=== PATIENT | female | born 1985 | race Caucasian/White ===

== ENCOUNTER → 2019-11-27 | Outpatient (CLI) | payer SELFPAY ==
[2019-11-27 14:38] VITALS: BMI 45.1
[2019-12-02 03:06] LABS: Chlamydia By Nucleic Acid AMP Negative (Negative)
[2019-12-02 06:59] LABS: Gonococcus By Nucleic Acid AMP Negative (Negative)
[2019-12-03 05:36] LABS: HPV APTIMA, High Risk Negative (Negative)
== END | disposition home or self-care (01) ==
LOC: LABSPEC 16:49
PROVIDERS: PCP Family Medicine; Referring Provider Obstetrics & Gynecology; Visit Provider Obstetrics & Gynecology
DX: Z12.4 Encounter for screening for malignant neoplasm of cervix (principal)
CPT/HCPCS: 87491; 87591; 87624; 88175; G0145

== ENCOUNTER → 2020-02-12 12:20 | Outpatient (CLI) | payer SELFPAY ==
[2019-11-27 14:38] VITALS: BMI 45.1
[2019-12-14 13:06] VITALS: BMI 45.1
--- NOTE | 2020-02-12 12:23 | US_ITS ---
STUDY: SECOND AND THIRD TRIMESTER OBSTETRICAL ULTRASOUND REASON FOR EXAM: Female, 34 years old ANATOMY -- SUPERVISION OF HIGH RISK DUE TO AMA, HTN, OBESITY -- BMI 45.4 LMP: 09/19/2019. TECHNIQUE: Transabdominal TECHNICAL QUALITY: Limited. Examination limited due to obesity. PRIOR ULTRASOUND: None. FINDINGS: There is a single intrauterine fetus. The fetus is in a breech presentation. There is demonstrated cardiac activity with a heart rate of 141 bpm. There is a normal amniotic fluid volume. The largest amniotic fluid pocket measures 5 cm x 4.4 cm. The amniotic fluid index (RISSA) is 16.7 cm. The placenta is anterior in location and is not low lying. There are Grade 1 placental changes. The cervix measures 4.2 cm in length. The adnexal regions are not visualized. BIOMETRY: BPD: 4.86 cm: 20 weeks, 5 days HC: 18.48 cm: 20 weeks, 5 days AC: 15.96 cm: 21 weeks, 0 days FL: 3.26 cm: 20 weeks, 1 days CI: 76.4% FL/BPD: 67% FL/HC: FL/AC: 20.4% HC/AC: 1.16 age by current US: 20 weeks, 3 days. ANAY by current US: 06/28/2020. Estimated weight: 371 grams, +/- 56 grams, 36.5 %. Age by LMP: 20 weeks, 6 days. ANAY by LMP: 06/25/2020. ANATOMY: Gender: Female Cranium: Normal lateral ventricles. Normal choroid plexus. Normal cerebellum. Normal cisterna magna. Normal face, nose and lips. Chest: Normal 4-chamber heart. Abdomen/Pelvis: Normal diaphragm. Normal stomach. Normal abdominal wall. Normal cord insertion. The cord vessels are non-visualized. Normal kidneys. Normal bladder. Spine: Limited visualization due to positioning of the fetus. Extremities: Normal bilateral upper extremities. Normal bilateral lower extremities. US/OB Anatomy Scan IMPRESSION: Single live intrauterine gestation with mean gestational age of 20 weeks and 3 days. Limited visualization of the spine as well as the cord insertion. Follow-up is recommended. Electronically Signed: Kodak James, at 15:20 EST , Service support ,
== END ==
PROVIDERS: PCP Family Medicine; Referring Provider Obstetrics & Gynecology; Visit Provider Obstetrics & Gynecology
DX: Z34.90 Encounter for supervision of normal pregnancy, unspecified, unspecified trimester (principal)
CPT/HCPCS: 76805

== ENCOUNTER → 2020-04-08 14:19 | Outpatient (CLI) | payer SELFPAY ==
[2020-02-12 14:32] VITALS: BMI 46.0
[2020-04-08 14:45] LABS: Absolute Lymphocyte Count 1.83 X10^3/uL (0.83-4.51); Absolute Neutrophil Count 8.2 X10^3/uL (2.0-7.7); Basophil# 0.02 X10^3/uL; Basophil% 0.2 % (0-1); Eosinophil# 0.24 X10^3/uL; Eosinophils% 2.2 % (0-5); Hematocrit 34.6 % (37-47); Hemoglobin 11.1 g/dL (12.0-15.0); Lymphocyte # 1.83 X10^3/ul (4.0); Lymphocyte % 16.9 % (19-41); Mean Corp Hgb Conc 32.1 g/dL (32-36); Mean Corpuscular Hgb 27.3 pg (27.0-32.0); Mean Corpuscular Volume 85.2 fL (81-99); Mean Platelet Vol. 8.8 fl (6.2-12.0); Monocyte# 0.51 X10^3/uL; Monocyte% 4.7 % (0-10); NRBC Flagged by Analyzer 0 % (0-5); Neutrophil # 8.19 X10^3/uL (2.7-7.7); Neutrophil % 75.4 % (47-70); Platelet Count 339 K/mm3 (150-450); RBC Distribution Width CV 14.3 % (11.6-14.6); RBC Distribution Width SD 44.4 fl (35.1-43.9); Red Blood Count 4.06 M/mm3 (4.2-5.4); White Blood Count 10.9 K/mm3 (4.4-11.0)
[2020-04-08 15:02] LABS: Glucose Challenge Gest 1H 50g 101 mg/dL (70-140)
== END ==
PROVIDERS: PCP Family Medicine; Referring Provider Obstetrics & Gynecology; Visit Provider Obstetrics & Gynecology
DX: O09.90 Supervision of high risk pregnancy, unspecified, unspecified trimester (principal); Z13.1 Encounter for screening for diabetes mellitus; Z3A.00 Weeks of gestation of pregnancy not specified
CPT/HCPCS: 36415; 82950; 85025

== ENCOUNTER → 2020-04-29 13:36 | Outpatient (CLI) | payer SELFPAY ==
[2020-04-08 16:01] VITALS: BMI 45.4
--- NOTE | 2020-04-29 13:41 | US_ITS ---
STUDY: SECOND AND THIRD TRIMESTER OBSTETRICAL ULTRASOUND REASON FOR EXAM: Female, 34 years old growth LMP: 09/19/2019. TECHNIQUE: Transabdominal TECHNICAL QUALITY: Adequate. PRIOR ULTRASOUND: Comparison is made with prior study dated 02/12/2020. FINDINGS: There is a single intrauterine fetus. The fetus is in a cephalic presentation. There is demonstrated cardiac activity with a heart rate of 137 bpm. There is a normal amniotic fluid volume. The largest amniotic fluid pocket measures 4.4 cm. The amniotic fluid index (RISSA) is 13.2 cm. The placenta is anterior in location and is not low lying. There are Grade 1 placental changes. The cervix measures 3.5 cm in length. The adnexal regions are not visualized. BIOMETRY: BPD: 8.43 cm: 33 weeks, 6 days HC: 30.9 cm: 34 weeks, 3 days AC: 28.1 cm: 32 weeks, 0 days FL: 5.9 cm: 30 weeks, 5 days CI: 78% FL/BPD: 70% FL/HC: FL/AC: 21% HC/AC: 1.1 age by current US: 33 weeks, 0 days. ANAY by current US: 06/17/2020. Estimated weight: 1905 grams, +/- 286 grams, 47 %. age by prior US: 31 weeks, 3 days. ANAY by prior US: 06/28/2020. Age by LMP: 31 weeks, 6 days. ANAY by LMP: 06/25/2020. ANATOMY: Spine: Normal cervical spine. Normal thoracic spine. Normal lumbar spine. Normal sacrum. US/OB Limited With Biometrics IMPRESSION: Single live intrauterine gestation with a mean gestational age of 31 weeks and 3 days. Measurements obtained today fall within the normal expected range. Electronically Signed: Kodak James MD at 14:58 EST , Service support ,
== END ==
PROVIDERS: PCP Family Medicine; Referring Provider Obstetrics & Gynecology; Visit Provider Obstetrics & Gynecology
DX: O09.519 Supervision of elderly primigravida, unspecified trimester (principal); O09.90 Supervision of high risk pregnancy, unspecified, unspecified trimester; O10.919 Unspecified pre-existing hypertension complicating pregnancy, unspecified trimester; Z3A.00 Weeks of gestation of pregnancy not specified
CPT/HCPCS: 76816

== ENCOUNTER → 2020-05-06 13:39 | Outpatient (CLI) | payer SELFPAY ==
[2020-04-08 16:01] VITALS: BMI 45.4
[2020-04-29 14:44] VITALS: BMI 46.2
--- NOTE | 2020-05-06 13:46 | US_ITS ---
STUDY: SECOND AND THIRD TRIMESTER OBSTETRICAL ULTRASOUND - LIMITED REASON FOR EXAM: Female, 34 years old rissa LMP: 09/19/2019. PRIOR ULTRASOUND: Comparison is made with prior examination dated 04/29/2020. TECHNIQUE: Transabdominal TECHNICAL QUALITY: Adequate. FINDINGS: There is a single intrauterine fetus. The fetus is in a transverse lie with the head on the maternal right side. There is demonstrated cardiac activity with a heart rate of 152 bpm. There is a normal amniotic fluid volume. The largest amniotic fluid pocket measures 5.3 cm. The amniotic fluid index (RISSA) is 13.5 cm. The placenta is anterior in location and is not low lying. There are Grade 1 placental changes. The cervix measures 4.1 cm in length. US/OB Limited (No Biometrics) IMPRESSION: Normal amniotic fluid. Electronically Signed: Kodak James MD at 15:29 EST , Service support ,
== END ==
PROVIDERS: PCP Family Medicine; Referring Provider Obstetrics & Gynecology; Visit Provider Obstetrics & Gynecology
DX: O09.90 Supervision of high risk pregnancy, unspecified, unspecified trimester (principal); O09.519 Supervision of elderly primigravida, unspecified trimester; O10.919 Unspecified pre-existing hypertension complicating pregnancy, unspecified trimester; Z3A.00 Weeks of gestation of pregnancy not specified
CPT/HCPCS: 76815

== ENCOUNTER → 2020-05-13 12:17 | Outpatient (CLI) | payer SELFPAY ==
[2020-04-08 16:01] VITALS: BMI 45.4
[2020-05-06 15:01] VITALS: BMI 46.3
--- NOTE | 2020-05-13 12:28 | US_ITS ---
STUDY: SECOND AND THIRD TRIMESTER OBSTETRICAL ULTRASOUND - LIMITED REASON FOR EXAM: Female, 34 years old RISSA LMP: 09/19/2019. PRIOR ULTRASOUND: Comparison is made with prior examination of 05/06/2020. TECHNIQUE: Transabdominal TECHNICAL QUALITY: Adequate. FINDINGS: There is a single intrauterine fetus. The fetus is in a cephalic presentation. There is demonstrated cardiac activity with a heart rate of 152 bpm. There is a normal amniotic fluid volume. The largest amniotic fluid pocket measures 6.6 cm. The amniotic fluid index (RISSA) is 12 cm. The placenta is anterior in location and is not low lying. There are Grade 1 placental changes. The cervix measures 3.1 cm in length. BIOMETRY: Age by LMP: 33 weeks, 6 days. ANAY by LMP: 06/25/2020. US/OB Limited (No Biometrics) IMPRESSION: Normal amniotic fluid index. Electronically Signed: Kodak James MD at 14:36 EST , Service support ,
== END ==
PROVIDERS: PCP Family Medicine; Referring Provider Obstetrics & Gynecology; Visit Provider Obstetrics & Gynecology
DX: O09.90 Supervision of high risk pregnancy, unspecified, unspecified trimester (principal); O09.519 Supervision of elderly primigravida, unspecified trimester; O10.919 Unspecified pre-existing hypertension complicating pregnancy, unspecified trimester; Z3A.00 Weeks of gestation of pregnancy not specified
CPT/HCPCS: 76815

== ENCOUNTER → 2020-05-20 13:04 | Outpatient (CLI) | payer SELFPAY ==
[2020-04-08 16:01] VITALS: BMI 45.4
[2020-05-06 15:01] VITALS: BMI 46.3
--- NOTE | 2020-05-20 13:07 | US_ITS ---
STUDY: SECOND AND THIRD TRIMESTER OBSTETRICAL ULTRASOUND - LIMITED REASON FOR EXAM: Female, 34 years old RISSA at 35 weeks LMP: 09/19/2019. PRIOR ULTRASOUND: Comparison is made with prior examination dated 05/13/2020. TECHNIQUE: Transabdominal TECHNICAL QUALITY: Adequate. FINDINGS: There is a single intrauterine fetus. The fetus is in a cephalic presentation. There is demonstrated cardiac activity with a heart rate of 131 bpm. There is a normal amniotic fluid volume. The largest amniotic fluid pocket measures 8.23 cm. The amniotic fluid index (RISSA) is 12.9 cm. The placenta is anterior in location and is not low lying. There are Grade 1 placental changes. The cervix measures 3.4 cm in length. BIOMETRY: Age by LMP: 34 weeks, 6 days. ANAY by LMP: 07/05/2020. US/OB Limited (No Biometrics) IMPRESSION: Normal amniotic fluid index. Electronically Signed: Kodak James MD at 14:38 EST , Service support ,
== END ==
PROVIDERS: PCP Family Medicine; Referring Provider Obstetrics & Gynecology; Visit Provider Obstetrics & Gynecology
DX: O09.90 Supervision of high risk pregnancy, unspecified, unspecified trimester (principal); O09.519 Supervision of elderly primigravida, unspecified trimester; O10.919 Unspecified pre-existing hypertension complicating pregnancy, unspecified trimester; Z3A.00 Weeks of gestation of pregnancy not specified
CPT/HCPCS: 76815

== ENCOUNTER → 2020-05-27 13:22 | Outpatient (CLI) | payer SELFPAY ==
[2020-04-08 16:01] VITALS: BMI 45.4
[2020-05-20 14:15] VITALS: BMI 47.0
--- NOTE | 2020-05-27 13:32 | US_ITS ---
STUDY: SECOND AND THIRD TRIMESTER OBSTETRICAL ULTRASOUND REASON FOR EXAM: Female, 35 years old growth at 36 weeks LMP: 09/19/2019 TECHNIQUE: Transabdominal TECHNICAL QUALITY: Adequate. PRIOR ULTRASOUND: 05/20/2020 FINDINGS: There is a single intrauterine fetus. The fetus is in a cephalic presentation. There is demonstrated cardiac activity with a heart rate of 141 bpm. There is a normal amniotic fluid volume. The largest amniotic fluid pocket measures 6.7 cm. The amniotic fluid index (RISSA) is 14.9 cm. The placenta is anterior in location and is not low lying. There are Grade 2 placental changes. The cervix measures 3.7 cm in length. The adnexal regions are not visualized. BIOMETRY: BPD: 9.1 cm: 36 weeks, 6 days HC: 33.7 cm: 38 weeks, 4 days AC: 32.1 cm: 36 weeks, 0 days FL: 6.8 cm: 34 weeks, 4 days CI: 81.21% FL/BPD: 74.02% FL/HC: 20.02% FL/AC: 21.04% HC/AC: 1.05 age by current US: 36 weeks, 4 days. ANAY by current US: 06/20/2020. Estimated weight: 2808 grams, +/- 421 grams, 52 %. Age by LMP: 35 weeks, 6 days. ANAY by LMP: 06/25/2020. US/OB Limited With Biometrics IMPRESSION: Living intrauterine of 36 weeks 4 days as described above. Electronically Signed: Bang Jordan MD at 8:20 EST Tel , Service support ,
== END ==
PROVIDERS: PCP Family Medicine; Referring Provider Obstetrics & Gynecology; Visit Provider Obstetrics & Gynecology
DX: O09.519 Supervision of elderly primigravida, unspecified trimester (principal); O09.90 Supervision of high risk pregnancy, unspecified, unspecified trimester; O10.919 Unspecified pre-existing hypertension complicating pregnancy, unspecified trimester; Z3A.00 Weeks of gestation of pregnancy not specified
CPT/HCPCS: 76816; 87077; 87081; 87186

== ENCOUNTER → 2020-06-03 13:15 | Outpatient (CLI) | payer SELFPAY ==
[2020-04-08 16:01] VITALS: BMI 45.4
[2020-05-27 14:33] VITALS: BMI 47.2
--- NOTE | 2020-06-03 13:42 | US_ITS ---
INDICATION: RISSA at 37 weeks EXAMINATION: US OB Limited 1 Or More Fetus TECHNIQUE: Transabdominal pelvic ultrasound was performed. COMPARISON: 05/27/2020. FINDINGS: INTRAUTERINE GESTATION(s): Single. ESTIMATED GESTATIONAL AGE: 37 weeks 4 days ESTIMATED DUE DATE (ANAY): 06/20/2020 HEART MOTION is 157 bpm. AMNIOTIC FLUID INDEX (RISSA): 9.3 PRESENTATION: Cephalic CERVIX: The cervix is not visualized. US/OB Limited (No Biometrics) IMPRESSION: Normal RISSA. Electronically Signed: Mal Mosher MD at 18:42 EST Tel , Service support ,
== END ==
PROVIDERS: PCP Family Medicine; Referring Provider Obstetrics & Gynecology; Visit Provider Obstetrics & Gynecology
DX: O09.90 Supervision of high risk pregnancy, unspecified, unspecified trimester (principal); O09.519 Supervision of elderly primigravida, unspecified trimester; O10.919 Unspecified pre-existing hypertension complicating pregnancy, unspecified trimester; Z3A.00 Weeks of gestation of pregnancy not specified
CPT/HCPCS: 76815

== ENCOUNTER → 2020-06-10 13:06 | Outpatient (CLI) | payer SELFPAY ==
[2020-04-08 16:01] VITALS: BMI 45.4
[2020-06-03 14:55] VITALS: BMI 46.5
--- NOTE | 2020-06-10 13:33 | US_ITS ---
STUDY: OBSTETRICAL ULTRASOUND - BIOPHYSICAL PROFILE REASON FOR EXAM: Female, 35 years old RISSA at 38 weeks . well-being. LMP: 09/19/2019. PRIOR ULTRASOUND: Comparison is made with prior study dated 06/03/2020. TECHNIQUE: Transabdominal TECHNICAL QUALITY: Adequate. FINDINGS: There is a single intrauterine fetus. The fetus is in a cephalic presentation. There is demonstrated cardiac activity with a heart rate of 140 bpm. There is a normal amniotic fluid volume. The largest amniotic fluid pocket measures 7.7 cm. The amniotic fluid index (RISSA) is 15.9 cm. The placenta is anterior in location and is not low lying. There are Grade 2 placental changes. Age by LMP: 37 weeks, 6 days. ANAY by LMP: 06/25/2020. age by prior US: 37 weeks, 6 days. ANAY by prior US: 06/25/2020. BIOPHYSICAL PROFILE: Breathing Movements (FBM): 2 Gross Body Movements (GBM): 2 Tone (FT): 2 Amniotic Fluid Volume (AFV): 2 TOTAL SCORE: 8 / 8 US/Biophysical Prof W/O Non Stres IMPRESSION: Normal biophysical profile of 8/8. Electronically Signed: Kodak James MD at 14:33 EDT , Service support ,
== END ==
PROVIDERS: PCP Family Medicine; Referring Provider Obstetrics & Gynecology; Visit Provider Obstetrics & Gynecology
DX: O09.519 Supervision of elderly primigravida, unspecified trimester (principal); O09.90 Supervision of high risk pregnancy, unspecified, unspecified trimester; O10.919 Unspecified pre-existing hypertension complicating pregnancy, unspecified trimester; Z3A.00 Weeks of gestation of pregnancy not specified
CPT/HCPCS: 76819

== ENCOUNTER 2020-06-17 14:10 | Inpatient (IN) | payer SELFPAY ==
[2019-11-27 14:38] VITALS: BMI 45.1
[2020-06-10 14:28] VITALS: BMI 47.4
[2020-06-17] VITALS (9 sets, daily range): BP systolic 130–182; BP diastolic 84–97; PULSE 71–93; TEMP 36.6–37.3; O2SAT 98; BMI 47.3
[2020-06-17 15:18] LABS: Absolute Lymphocyte Count 1.64 X10^3/uL (0.83-4.51); Absolute Neutrophil Count 7.8 X10^3/uL (2.0-7.7); Basophil# 0.05 X10^3/uL; Basophil% 0.5 % (0-1); Eosinophil# 0.19 X10^3/uL; Eosinophils% 1.9 % (0-5); Hematocrit 37.2 % (37-47); Hemoglobin 12.2 g/dL (12.0-15.0); Lymphocyte # 1.64 X10^3/ul (4.0); Lymphocyte % 16.1 % (19-41); Mean Corp Hgb Conc 32.8 g/dL (32-36); Mean Corpuscular Volume 85.3 fL (81-99); Mean Platelet Vol. 9.8 fl (6.2-12.0); Monocyte# 0.43 X10^3/uL; Monocyte% 4.2 % (0-10); NRBC Flagged by Analyzer 0 % (0-5); Neutrophil % 76.7 % (47-70); Platelet Count 326 K/mm3 (150-450); RBC Distribution Width CV 15.6 % (11.6-14.6); Red Blood Count 4.36 M/mm3 (4.2-5.4); White Blood Count 10.2 K/mm3 (4.4-11.0)
[2020-06-17] MEDS: 0.9% Saline Lock 10 ML Syringe IV ×2 (15:27→23:10)
[2020-06-17 15:41] LABS: Amphetamine Urine VISTA NEGATIVE (<1000 ng/mL); Barbiturate Urine VISTA NEGATIVE (< 200 ng/mL); Benzodiazepine Urine VISTA NEGATIVE (< 200 ng/mL); Cocaine Urine VISTA NEGATIVE (< 300 ng/mL); Ecstacy Urine VISTA POSITIVE (< 500 ng/mL); Methadone Urine VISTA NEGATIVE (< 300 ng/mL); PCP Urine VISTA NEGATIVE (< 25 ng/mL); THC Urine VISTA NEGATIVE (< 50 ng/mL); Vista UDS pH Range 6
[2020-06-17 15:47] LABS: Rubella IgG Reactive (Nonreactive); Syphilis Antibodies Non-reactive
[2020-06-17 16:07] LABS: HIV - WCH Non-Reactive (Nonreactive); Hepatitis B Surface Antigen Non-Reactive (Nonreactive); Hepatitis C Antibody Non-Reactive (Nonreactive)
[2020-06-17] MEDS: miSOPROStol 25 MCG TABLET PO ×2 (16:40→21:30)
[2020-06-17] MEDS: 0.9% Normal Saline Single 100 ML IV.SOLN. INTRA-UTER (16:41)
--- NOTE | 2020-06-17 17:50 | HP.PCM_ITS ---
- Problem List (1) Encounter for induction of labor Status: Acute (2) 36 weeks gestation of Status: Acute Comment: electronic covid test ordered 05/27/20 (scheduled for 06/17/20 at 1340) (3) AMA (advanced maternal age) primigravida 35+ Status: Acute Comment: declined genetic testing. (4) Anxiety and depression Status: Acute Comment: counseling and acupuncture (5) Chronic hypertension affecting Status: Chronic Comment: base line labs. labetalol 100 BID. recommend weekly nst/alexandr after 32 weeks, delivery bt 38-40 weeks. growth US q 4 weeks (6) Hypothyroid Status: Acute Comment: TSH qtrimester. TSH 5.180 at NOB; TSH 01/17- 5.380 - patient to call PCP to adjust dose. (7) Obesity affecting Status: Acute Comment: glucola 1 hour (8) Positive GBS test Status: Acute Comment: PCN at labor. (9) Status: Acute Qualifiers: Comment: Co Care with Vanessa Snowden declines genetic, carrier and NTD; NL anatomy; needs addition views of spine to finish up anatomy- AFP negative (10) Rh negative state in antepartum period Status: Acute Comment: Patient is O neg; Spouse Jose is A neg (brought blood type card to New OB visit) (11) Supervision of high risk , antepartum Status: Acute Comment: (SP- NOB labs @del) ANAY 06/25/2020 Girl - Syl Spouse: Jose (Sukhdeep, Lamberto, Angelica, Shelly, Domenica) History and Physical Date of Admission: 06/17/20 Intake Vital Signs 06/10/20 Height 5 ft 5 in 06/10/20 Weight: 285 lb 06/10/20 BMI 47.4 06/10/20 BP 122/82 H Intake Visit Reasons: 38 WK OB/NST 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 Required: No Is patient in pain?: No Allergies No Known Allergies Allergy (Verified 06/10/20 14:30) Medications labetalol 100 mg tablet 100 mg PO BID 11/27/19 [History Confirmed 06/10/20] levothyroxine 137 mcg capsule 137 mcg PO DAILY 11/27/19 [History Confirmed 06/10/20] multivitamin no.47-iron fum 27 mg-folate no.1 1 mg-dha 300 mg capsule cap PO 11/27/19 [History Confirmed 06/10/20] famotidine 20 mg tablet 20 mg PO DAILY #30 tab 04/08/20 [Rx Confirmed 06/10/20] Last Menstral Period: 09/19/19 Zika: Zika virus screening: Negative : No PFSH PFSH Medical History Hypothyroid (Acute) Chronic hypertension affecting (Chronic) Obesity (Acute) Surgical History History of tonsillectomy (Acute) Family History Father Diabetes Hypertension Kidney disease Mother Ovarian cancer Grandmother Cancer acute leukemia Grandmother Diabetes Hypertension Social History (Updated 06/11/20 @ 05:[address] Juju Rodriguez MD) adopted: No household members: spouse, family housing: house current occupational status: employed current occupation: 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 OB Visit ANAY Calculator Estimated Delivery Date Method Current WG Current Estimate 06/25/20 LMP (Certain) 38w 0d Other Estimates 06/25/20 Ultrasound #1 38w 0d Expected Delivery Route/Plan IOL by 38-39 due to cHTN Labor Preferences- CB/BF classes: 05/14 labor support person: Jose labor intervention preferences: desires minimal intervention, desires tub in labor, hep lock if possible, declines baby meds, breast milk in eyes, vitamin K only if baby has bruising on head, would like to deliver with squatting bar pain management options preferred: desires natural labor - would like to avoid epidural if at all possible cut cord/dad catch: yes - both : yes PP control planned: NFP discussed possible routes of delivery and associated risks: discussed possible delivery modalities and possible indications for each including R/B/A of , VAVD, FAVD, and CS. questions answered. special requests: [] Specific Issue/Plans flu vaccine: declines tdap vaccine: declines rhogam: refused due to in o neg, confirmed with type card LARC form signed: declined movement and labor precautions reviewed. Problem list reviewed and updated with the most current plan of care details and appropriate orders placed. Relevant counseling for the gestational age provided. 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 CRL consistent with LMP. 12/14/19 12w 2d 273 lb 2 oz (+2 lb 2 oz) 140/90 Negative Negative 170 GP - no cramping or bleeding. TSH high - will forward results to PCP. 02/12/20 20w 6d 276 lb 8 oz (+5 lb 8 oz) 120/82 Negative Negative 150 GP - no LOF, VB, cramping. Not yet feeling consistent movement. Thyroid medication adjusted by PCP after last visit. Co-care with Jens Snowden. Discussed GCT next visit. 04/08/20 28w 6d 273 lb (+2 lb) 118/75 140 29 SM- no vb lof good fm no regular ctx discussed cHTN and cocare management SM- no vb lof good fm no regular ctx discussed cHTN and cocare management, recommend weekly nsts/alexandr and weekly visits here starting at 32 weeks, and plan delivery bt 38-40 weeks if reassuring testing. 04/29/20 31w 6d 278 lb (+7 lb) Negative Negative 150 GP - no LOF, VB, DFM, ctx. Planning to do childbirth classes. NST reactive. GP - no LOF, VB, DFM, ctx. Planning to do childbirth classes. NST reactive. Having heartburn - discussed pepcid 05/06/20 32w 6d 278 lb 6 oz (+7 lb 6 oz) 130/90 Negative Negative 150 GP - no LOF, VB, DFM, ctx. Getting bathroom remodeled for gomez's day. Baby breech on US today - discussed can still flip frequently at this point in . CB classes 05/1405/13/20 33w 6d Negative Negative 150 SM- no vb lof good fm doing better today nl alexandr. CB class tomorrow 05/20/20 34w 6d 282 lb 6 oz (+11 lb 6 oz) 138/88 Negative Negative 140 35 GP - no LOF, VB, DFM, ctx. Discussed labor preferences and routes of delivery. Also making printed plan. 05/27/20 35w 6d 284 lb (+13 lb) 138/92 140 36 SM- no vb lof good fm no regular ctx 06/03/20 36w 6d 280 lb (+9 lb) Negative Negative 140 37 SM- no vb lof good fm no regular ctx 06/10/20 37w 6d 285 lb (+14 lb) 122/82 Negative Negative 140 38 SM-no vb lof good fm no regular ctx, doing acupuncture treatments to help go into labor. discussed IOL bt 38-39 due to cHTN, reassuring testing. ACOG First Trimester First Trimester: Desire for , Alcohol, Tobacco Cessation, Illicit/Recreational Drug/Substance Use, Intimate Partner Violence, Barriers to care, Unstable Housing, Communication Barriers, Anticipated Course of Care, Use of Any medications, Childbirth classes/Hospital facilities, and Screening for Aneuploidy Second Trimester Second Trimester: Signs and Symptoms of Labor, Selecting a care provider, Reproductive Life Planning, Care Planning, Tobacco Cessation, Depression/Anxiety and Intimate Partner Violence Third Trimester Third Trimester: Pain Management Plans, Labor support person(s), Immediate Larc, Movement Monitoring and Infant Feeding Yes ; discussed Trial of Labor after Counseling or discussed Circumcision preference Diagnostics Diagnostics Details: HIV: Urine Culture: Sequential Screen: NIPT Screen: ROS Const Reports system reviewed and no additional complaints, except as docu Card Reports system reviewed and no additional complaints, except as docu Resp Reports system reviewed and no additional complaints, except as docu GI Reports system reviewed and no additional complaints, except as docu, Reports nausea Reports system reviewed and no additional complaints, except as docu Musc Reports system reviewed and no additional complaints, except as docu Exam Const General: cooperative, healthy appearing, comfortable, anxious [facility] Head: normal to inspection Nose: external nose normal Face and sinus: normal facial exam Neck Neck: normal visual inspection, full ROM, no lymphadenopathy Thyroid: thyroid normal Chest Chest palpation & inspection: normal inspection of the chest Resp Effort & Inspection: normal respiratory effort GI Inspection: normal to inspection Palpation: soft, other (gravid uterus) Other: infant vertex and appropriate size for gestational age Other: Cervical Exam: Extrem General: pedal edema Results POC Urinalysis 2 Dip (Clinic) Office Urine Glucose Negative Last Edit by Peggy Yousif on 06/10/20 14:32 Office Urine Protein Negative Last Edit by Peggy Yousif on 06/10/20 14:32 Assessment & Plan Problems 1. Z34.90 Co Care with Vanessa Snowden declines genetic, carrier and NTD; NL anatomy; needs addition views of spine to finish up anatomy- AFP negative 2. Supervision of high risk , antepartum O09.90 (SP- NOB labs @[facility]) ANAY 06/25/2020 Girl - Yunieriper Spouse: Jose (Lamberto Tarango, Shelly Dominguez, Domenica) 3. Obesity affecting O99.210 glucola 1 hour 4. AMA (advanced maternal age) primigravida 35+ O09.519 declined genetic testing. 5. Chronic hypertension affecting O10.919 base line labs. labetalol 100 BID. recommend weekly nst/alexandr after 32 weeks, delivery bt 38-40 weeks. growth US q 4 weeks 6. Anxiety and depression F41.9; F32.9 counseling and acupuncture 7. 36 weeks gestation of Z3A.36 electronic covid test ordered 05/27/20 (scheduled for 06/17/20 at 1340) 8. Positive GBS test B95.1 PCN at labor. 9. Hypothyroid E03.9 TSH qtrimester. TSH 5.180 at NOB; TSH 01/17- 5.380 - patient to call PCP to adjust dose. 10. Rh negative state in antepartum period O26.899; Z67.91 Patient is O neg; Spouse Jose is A neg (brought blood type card to New OB visit) Plan Patient will present on for IOL, plan management for with cytotec. Pain management: prefers minimal intervention. GBS positive- pcn in labor. Management of any complications: cHTN, declined labs in beginning of plan draw at delivery, declined covid testing. I have reviewed the [facility] and made any clinically relevant updates. UPDATE- I have seen the patient and performed any clinically relevant updates to the history and physical exam. Silvia Chavis MD
[2020-06-17] MEDS: Labetalol 100 MG Tablet PO (21:51)
[2020-06-17] MEDS: Mag Hydrox/Al Hydrox/Simeth 30 ML UDC PO (23:04)
[2020-06-17] MEDS: Acetaminophen 500 MG Tablet PO (23:04)
[2020-06-17] MEDS: Lactated Ringers 500 ML 999 ML IV (23:12)
[2020-06-17] MEDS: Lactated Ringers 1,000 ML 50 ML IV (23:43)
[2020-06-18] VITALS (107 sets, daily range): BP systolic 93–184; BP diastolic 52–118; PULSE 61–129; RESP 16–24; TEMP 36.6–37.6; O2SAT 81–100
[2020-06-18] MEDS: Oxytocin 30 units/NS 500 ml 30 UNITS/500 ML IV.SOLN IV (01:30)
[2020-06-18] MEDS: Mag Hydrox/Al Hydrox/Simeth 30 ML UDC PO ×3 (03:06→13:53)
[2020-06-18] MEDS: Labetalol (Prefilled) 20 MG/4 ML IV (04:15)
[2020-06-18] MEDS: Magnesium Sulfate 4gm/100mL 4 GM/100 ML IV.SOLN. IV ×2 (04:19→04:39)
[2020-06-18] MEDS: Labetalol 100 MG Tablet PO ×2 (04:23→22:57)
[2020-06-18 04:42] LABS: ALB/GLOB Ratio 0.6 RATIO (0.9-2.4); AST(SGOT) 15 U/L (15-37); Alanine Aminotransfer ALT/SGPT 20 U/L (13-56); Albumin, Serum 2.6 g/dL (3.2-5.0); Alkaline Phosphatase 129 U/L (45-117); Anion Gap 7 (5-15); BUN 8 mg/dL (7-18); Calcium,Total 9.4 mg/dL (8.5-10.1); Chloride 107 mmol/L (98-107); Creatinine, Serum 0.62 mg/dL (0.55-1.02); EST Glomerular Filtration Rate 116 mL/min (>60); Est Glom Filt Rate - Afr Amer 141 mL/min (>60); Estimated Creatinine Clearance 112.88 ml/min; Globulin 4.2 g/dL (2.2-4.2); Glucose 93 mg/dL (74-106); Protein, Total 6.8 g/dL (6.4-8.2); Sodium Level 139 mmol/L (136-145)
[2020-06-18] MEDS: Magnesium Sulfate 20 GM/500 ML BAG IV ×2 (04:52→15:00)
[2020-06-18] MEDS: Ondansetron 4 MG/2 ML Vial IV ×2 (05:10→15:25)
[2020-06-18] MEDS: Levothyroxine 137 MCG Tablet PO (05:45)
[2020-06-18] MEDS: Acetaminophen 500 MG Tablet PO (08:32)
[2020-06-18] MEDS: Labetalol 200 MG Tablet PO (09:47)
--- NOTE | 2020-06-18 09:58 | PCM.PN.BLA ---
Progress Note Patient 4/60/-2. AROM at this time for a moderate amount of clear fluid. IUPC placed. STROKE Vital Signs/Narrative: Vital Signs Temp Pulse Resp BP Pulse Ox 06/18/20 09:29 98.1 F 73 98 06/18/20 09:28 98.9 F 73 20 H 132/86 H 98 06/18/20 09:20 81 132/86 H 06/18/20 08:19 75 139/93 H 06/18/20 08:18 75 18 139/93 H 97 06/18/20 07:22 98.9 F 81 141/85 H 98 06/18/20 07:18 98.9 F 81 18 141/85 H 98 06/18/20 06:49 68 143/83 H 06/18/20 06:18 98.4 F 77 16 147/88 H 98 06/18/20 06:03 64 147/84 H
[2020-06-18] MEDS: Lactated Ringers 500 ML 999 ML IV ×3 (13:53→16:29)
[2020-06-18] MEDS: fentaNYL-bupivacaine (epidural) 100 ML BAG EPIDURAL (14:36)
[2020-06-18] MEDS: Acetaminophen 500 MG Tablet 1000 MG PO (16:49)
[2020-06-18] MEDS: Sodium Citrate/Citric Acid 30 ML UDC PO (16:50)
[2020-06-18] MEDS: Carboprost Tromethamine 250 MCG/ML Ampul IM (17:34)
[2020-06-18] MEDS: Oxytocin 30 units/NS 500 ml 30 UNITS/500 ML IV.SOLN 167 UNITS IV (18:30)
--- NOTE | 2020-06-18 18:34 | PCM.PN.BLA ---
Progress Note Late note due to patient care: Notified by RN at 1600 the patient had another prolonged deceleration and continued to have minimal variability. I came to the bedside to evaluate at 1633 and attempted to obtain scalp stim. Able to obtain scalp system for obtained acceleration with vibroacoustic stimulation. Counseled patient that given minimal variability with multiple prolonged decelerations and intermittent late decelerations, I recommended proceeding with a primary due to category 2 heart rate tracing remote from delivery and failure to augment. The risk, benefits, indications, and alternatives to the procedure were discussed with patient including bleeding, infection, and visceral or vascular injury. Patient voiced understanding and agreed to proceed. STROKE Vital Signs/Narrative: Vital Signs Temp Pulse Resp BP Pulse Ox 06/18/20 16:43 129 H 160/118 H 06/18/20 16:27 76 93/55 L 06/18/20 16:22 81 93/52 L 06/18/20 16:18 81 103/72 06/18/20 16:12 76 101/61 06/18/20 16:08 78 108/52 L 06/18/20 16:02 76 114/71 06/18/20 15:58 82 121/77 H 06/18/20 15:54 61 92 06/18/20 15:53 74 100/59 L 06/18/20 15:49 73 119/71 06/18/20 15:48 99 06/18/20 15:43 72 100 06/18/20 15:42 124/85 H 06/18/20 15:38 69 100 06/18/20 15:37 72 119/76 06/18/20 15:33 75 100 06/18/20 15:28 72 100 06/18/20 15:27 70 113/69 06/18/20 15:23 71 100 06/18/20 15:22 68 107/65 06/18/20 15:18 98.7 F 74 22 H 114/69 100 06/18/20 15:13 74 100 06/18/20 15:12 73 115/69 06/18/20 15:09 76 88 06/18/20 15:08 74 100 06/18/20 15:07 80 104/62 06/18/20 15:03 82 96/57 L 06/18/20 14:58 82 95/55 L 06/18/20 14:51 88 132/62 H 06/18/20 14:49 81 149/78 H 99 06/18/20 14:44 75 96 06/18/20 14:43 74 100/67 06/18/20 14:39 73 96 06/18/20 14:37 72 107/62
--- NOTE | 2020-06-18 18:36 | OP.PCM_ITS ---
Problem List (1) Encounter for induction of labor Status: Acute (2) 36 weeks gestation of Status: Acute Comment: electronic covid test ordered 05/27/20 (scheduled for 06/17/20 at 1340) (3) AMA (advanced maternal age) primigravida 35+ Status: Acute Comment: declined genetic testing. (4) Anxiety and depression Status: Acute Comment: counseling and acupuncture (5) Chronic hypertension affecting Status: Chronic Comment: base line labs. labetalol 100 BID. recommend weekly nst/alexandr after 32 weeks, delivery bt 38-40 weeks. growth US q 4 weeks (6) Hypothyroid Status: Acute Comment: TSH qtrimester. TSH 5.180 at NOB; TSH 01/17- 5.380 - patient to call PCP to adjust dose. (7) Obesity affecting Status: Acute Comment: glucola 1 hour (8) Positive GBS test Status: Acute Comment: PCN at labor. (9) Status: Acute Qualifiers: Comment: Co Care with Vanessa Snowden declines genetic, carrier and NTD; NL anatomy; needs addition views of spine to finish up anatomy- AFP negative (10) Rh negative state in antepartum period Status: Acute Comment: Patient is O neg; Spouse Jose is A neg (brought blood type card to New OB visit) (11) Supervision of high risk , antepartum Status: Acute Comment: (SP- NOB labs @del) ANAY 06/25/2020 Girl - Syl Spouse: Jose (Sukhdeep, Lamberto, Angelica, Shelly, Domenica) Delivery Classification: JESSICA Final ANAY: 06/25/20 Gestational age: 39 Weeks and 0 Days tube trailer filler: Ria Guerrero Type of Anesthesia:: Epidural Date of Procedure: 06/18/20 Pre-Operative Diagnosis: Term , induction of labor for chronic hypertension with superimposed preeclampsia with severe features, category 2 heart rate tracing remote from delivery Post-Operative Diagnosis: Same Indications: Patient is a 35-year-old G1, P0 at 39 weeks gestation who was admitted for induction of labor for chronic hypertension. While in labor, she had persistent severe range blood pressures requiring acute treatment with IV labetalol and was therefore started on magnesium sulfate for chronic hypertension with superimposed preeclampsia with severe features. Following placement of her epidural, she had a prolonged deceleration and Pitocin was discontinued. After this time, she continued to have minimal variability with periods of recurrent late decelerations and had 2 additional prolonged decelerations. Given minimal variability we attempted to obtain scalp stim and no acceleration was noted. Discussed with patient that at this time I was unable to rule out distress and that I recommended proceeding with primary . The risk, benefits, indications, and alternatives to the procedure were discussed with the patient including bleeding, infection, and visceral vascular injury. Patient voiced understanding and agreed to proceed Indications for : Nonreassuring Status Description of Procedure: The patient is a G1, P0 at 39 weeks gestation who presented for primary C- section. Spinal anesthesia was placed without difficulty. Parisi catheter was placed. The patient was placed in the dorsal supine position with leftward tilt. Patient was prepped and draped in the normal sterile fashion. Pfannenstiel skin incision was made with the scalpel and carried through to the underlying layer of fascia with the scalpel. Fascia was nicked in the midline and the incision extended laterally. The rectus bellies were dissected off superiorly and inferiorly with out complication both sharply and bluntly. The peritoneum was entered digitally. The incision was stretched and a low transverse uterine incision was made with the scalpel. The infant's head was delivered atraumatically followed by the anterior and posterior shoulders witho ut complication the rest of the delivered. The cord was clamped and cut and the infant was handed off to awaiting nurse. The placenta was delivered spontaneously immediately following and was noted to be intact and have a three- vessel cord. The uterus was exteriorized cleared of all clots and debris, and the incision was closed in a double layer closure using #1 Monocryl. The ovaries and fallopian tubes were noted to be within normal limits. The uterus was returned to the maternal abdomen and gutters were cleared of all clots and debris. The peritoneum was closed with 3-0 Monocryl in a running fashion. Gloves were changed prior to fascial closure. Fascia was closed with 0 PDS in a running fashion. Subcutaneous tissue was copiously irrigated and the skin was closed with 3-0 Monocryl in a subcuticular fashion. Mepilex dressing was applied without complication. Patient was taken to recovery in stable condition. It was discussed with the patient that based on the clinical information obtained during this encounter, combined with her history, at this time I feel that she would be a candidate for a trial of labor if future pregnancies are desired Amniotic Membrane Rupture Type: Artificial Amniotic Fluid Description: Clear Placenta Disposition: [facility] Specimen(s) sent to pathology: None Drain: Parisi to straight drain Fluids Replaced: 1000 Cord Entanglement: None Cord Vessel Description: 3 Vessels Esitmated Blood Loss (ml): 600 Gender: Female Delayed cord clamping: No Antibiotic Given: Ancef 3 grams IV x1, Zithromax 500 mg/5 mL X1 Pt instructed on risks of surgery: Bleeding, Anesthesia Risks, Infection, Injury to surrounding structure(s) including bowel and bladder Complications: None - Admit VTE Documentation VTE Present on Admission: No VTE Mechan Device Prophylaxis: SCD's VTE Pharm Prophylaxis ordered?: Yes Multi Select Codes - Urinary/Genital Urinary/Genital CPT Codes: 61663 Delivery [facility]
--- NOTE | 2020-06-18 18:42 | DCINST_ITS ---
Discharge Diet: No Restrictions Discharge Activity: May Not Drive - for 2 weeks or while taking narcotic pain meds., May Shower, May Take a Tub Bath - in 7 days. May resume sexual activity in: 4-6 weeks Lifting Restrictions: 20 pounds Additional Activity Instructions:: Nothing in the vagina for 4-6 weeks. You may return to work/school in 6 weeks. Call your doctor if your incision/area has: Continuous Slow Oozing, Sudden Increased Bleeding, Increased Pain/ Swelling, Increased Redness, Foul Smelling Discharge Call your doctor if you observe: Fever of 101 or Higher Suture Line Care: Avoid Pulling/Pushing, Avoid Pinching/Bending Additional Instructions: If you experience any of the following, contact your healthcare provider. * Bleeding that soaks a pad every hour for 2 hours * Fever 100.4 or higher * Unrelieved incision or abdominal pain * Swelling, redness, discharge or bleeding from your incision or episiotomy site * Your incision begins to separate * Problems urinating (including inability to urinate or burning while urinating). * Visual changes * Severe headache * Flu-like symptoms * Pain or redness in one of both of your breasts * Pain, warmth, tenderness or swelling in your legs, especially the calf area * Frequent nausea and vomiting * Symptoms of depression or anxiety If you experience any of the following, call 911 or go to the nearest Emergency Room. * Chest pain * Problems breathing * Seizure activity * Partial or complete paralysis of a body part, slurred speech, weakness or drooping of the face, or a sudden inability to walk or hold your balance Allergies/Adverse Reactions: Allergies No Known Allergies Allergy (Verified 06/17/20 15:34) Medications to take at Discharge labetalol 100 mg tablet 100 mg PO BID 11/27/19 levothyroxine 137 mcg capsule 137 mcg PO DAILY 11/27/19 multivitamin no.47-iron fum 27 mg-folate no.1 1 mg-dha 300 mg capsule 1 cap PO DAILY 11/27/19 Famotidine 20 mg PO DAILY 06/17/20 Levothyroxine [Synthroid] 25 mcg PO QODAY 06/17/20 Follow-Up: Call to make an appointment with your doctor for an incision check in 1-2 weeks. You will also need a 6 week post- follow up appointment. Test results from this visit will be discussed in further detail at your follow- up appointment, if applicable. Primary Care Physician: Marcos Hussein MD [Primary Care Provider] -
--- NOTE | 2020-06-18 18:48 | NURSING ---
6-noted small shreddy clot
[2020-06-18] MEDS: 0.9% Saline Lock 10 ML Syringe IV (19:17)
[2020-06-18] MEDS: Ketorolac 30 MG/ML Syringe IV (19:17)
[2020-06-18] MEDS: Lactated Ringers 1,000 ML 50 ML IV (22:44)
[2020-06-19] VITALS (16 sets, daily range): BP systolic 97–116; BP diastolic 60–69; PULSE 72–87; RESP 12–18; TEMP 36.4–36.9; O2SAT 95–100
[2020-06-19] MEDS: Acetaminophen 500 MG Tablet 1000 MG PO ×4 (00:20→18:41)
[2020-06-19] MEDS: Magnesium Sulfate 20 GM/500 ML BAG IV (00:31)
[2020-06-19] MEDS: Ketorolac 30 MG/ML Syringe IV ×3 (01:23→13:40)
[2020-06-19] MEDS: Levothyroxine 137 MCG Tablet PO (06:19)
[2020-06-19] MEDS: Enoxaparin 40 MG/0.4 ML Syringe SC (06:19)
[2020-06-19] MEDS: Levothyroxine 25 MCG TABLET PO (06:20)
[2020-06-19 07:06] LABS: Hematocrit 30.9 % (37-47); Hemoglobin 10.1 g/dL (12.0-15.0); Mean Corp Hgb Conc 32.7 g/dL (32-36); Mean Corpuscular Hgb 28.2 pg (27.0-32.0); Mean Corpuscular Volume 86.3 fL (81-99); Mean Platelet Vol. 9.7 fl (6.2-12.0); Platelet Count 274 K/mm3 (150-450); RBC Distribution Width CV 15.9 % (11.6-14.6); RBC Distribution Width SD 49.5 fl (35.1-43.9); Red Blood Count 3.58 M/mm3 (4.2-5.4); White Blood Count 11.1 K/mm3 (4.4-11.0)
--- NOTE | 2020-06-19 08:01 | PN.OBGYN_ITS ---
Patient Problems: Active and Suspected Problems (Last Reviewed 06/10/20 @ 14:30 by Peggy Yousif) Encounter for induction of labor (Acute) Positive GBS test (Acute) PCN at labor. 36 weeks gestation of (Acute) electronic covid test ordered 05/27/20 (scheduled for 06/17/20 at 1340) Anxiety and depression (Acute) counseling and acupuncture Hypothyroid (Acute) TSH qtrimester. TSH 5.180 at NOB; TSH 01/17- 5.380 - patient to call PCP to adjust dose. AMA (advanced maternal age) primigravida 35+ (Acute) declined genetic testing. Obesity affecting (Acute) glucola 1 hour Supervision of high risk , antepartum (Acute) (SP- NOB labs @[facility]) ANAY 06/25/2020 Girl - Syl Spouse: Jose (Sukhdeep, Lamberto, Angelica, Shelly, Domenica) (Acute) Co Care with Vanessa Snowden declines genetic, carrier and NTD; NL anatomy; needs addition views of spine to finish up anatomy- AFP negative Rh negative state in antepartum period (Acute) Patient is O neg; Spouse Jose is A neg (brought blood type card to New OB visit) Subjective: Patient doing well without complaints. Tolerating PO. Ambulating and voiding without difficulty. Breast feeding well. Denies chest pain, shortness of breath, calf pain/swelling, fevers, chills, lightheadedness. Objective: Laboratory Tests 06/19/20 06/18/20 06/18/20 Range/Units 06:33 21:40 04:15 WBC 11.1 H (4.4-11.0) K/mm3 RBC 3.58 L (4.2-5.4) M/mm3 Hgb 10.1 L (12.0-15.0) g/dL Hct 30.9 L (37-47) % MCV 86.3 (81-99) fL MCH 28.2 (27.0-32.0) pg MCHC 32.7 (32-36) g/dL RDW Std Deviation 49.5 H (35.1-43.9) fl RDW Coeff of Waldo 15.9 H (11.6-14.6) % Plt Count 274 (150-450) K/mm3 MPV 9.7 (6.2-12.0) fl Immature Gran % (Auto) (0.0-0.9) % Neut % (Auto) (47-70) % Lymph % (Auto) (19-41) % [place] % (Auto) (0-10) % Eos % (Auto) (0-5) % Baso % (Auto) (0-1) % Absolute Neuts (auto) (2.0-7.7) X10^3/uL Absolute Lymphs (auto) (0.83-4.51) X10^3/uL Nucleated RBC % (0-5) % Sodium 139 (136-145) mmol/L Potassium 4.0 (3.5-5.1) mmol/L Chloride 107 (98-107) mmol/L Carbon Dioxide 25.0 (21.0-32.0) mmol/L Anion Gap 7 (5-15) BUN 8 (7-18) mg/dL Creatinine 0.62 (0.55-1.02) mg/dL Estim Creat Clear Calc 112.88 ml/min Est GFR (MDRD) Af Amer 141 (>60) mL/min Est GFR (MDRD) Non-Af 116 (>60) mL/min BUN/Creatinine Ratio 13.0 (10-20) RATIO Glucose 93 (74-106) mg/dL Calcium 9.4 (8.5-10.1) mg/dL Total Bilirubin 0.30 (0.20-1.00) mg/dL AST 15 (15-37) U/L ALT 20 (13-56) U/L Alkaline Phosphatase 129 H (45-117) U/L Total Protein 6.8 (6.4-8.2) g/dL Albumin 2.6 L (3.2-5.0) g/dL Globulin 4.2 (2.2-4.2) g/dL Albumin/Globulin Ratio 0.6 L (0.9-2.4) RATIO Urine Opiates Screen (< 300 ng/mL) Urine Methadone Screen (< 300 ng/mL) Ur Barbiturates Screen (< 200 ng/mL) Ur Phencyclidine Scrn (< 25 ng/mL) Ur Amphetamines Screen (<1000 ng/mL) U Methamphetamin-MDMA (< 500 ng/mL) U Benzodiazepines Scrn (< 200 ng/mL) Urine Cocaine Screen (< 300 ng/mL) U Cannabinoids Screen (< 50 ng/mL) Ur Drug Screen Comment Syphilis Total Ab Hep Bs Antigen (Nonreactive) Hepatitis C Antibody (Nonreactive) HIV 1&2 Antibody (Nonreactive) Rubella IgG Antibody (Nonreactive) Blood Type Antibody Screen Screen NEGATIVE (NEGATIVE) Baby's Blood Type A POSITIVE Baby's TOM NEGATIVE (NEGATIVE) 06/17/20 06/17/20 06/17/20 Range/Units 15:10 14:52 14:52 WBC (4.4-11.0) K/mm3 RBC (4.2-5.4) M/mm3 Hgb (12.0-15.0) g/dL Hct (37-47) % MCV (81-99) fL MCH (27.0-32.0) pg MCHC (32-36) g/dL RDW Std Deviation (35.1-43.9) fl RDW Coeff of Waldo (11.6-14.6) % Plt Count (150-450) K/mm3 MPV (6.2-12.0) fl Immature Gran % (Auto) (0.0-0.9) % Neut % (Auto) (47-70) % Lymph % (Auto) (19-41) % [place] % (Auto) (0-10) % Eos % (Auto) (0-5) % Baso % (Auto) (0-1) % Absolute Neuts (auto) (2.0-7.7) X10^3/uL Absolute Lymphs (auto) (0.83-4.51) X10^3/uL Nucleated RBC % (0-5) % Sodium (136-145) mmol/L Potassium (3.5-5.1) mmol/L Chloride (98-107) mmol/L Carbon Dioxide (21.0-32.0) mmol/L Anion Gap (5-15) BUN (7-18) mg/dL Creatinine (0.55-1.02) mg/dL Estim Creat Clear Calc ml/min Est GFR (MDRD) Af Amer (>60) mL/min Est GFR (MDRD) Non-Af (>60) mL/min BUN/Creatinine Ratio (10-20) RATIO Glucose (74-106) mg/dL Calcium (8.5-10.1) mg/dL Total Bilirubin (0.20-1.00) mg/dL AST (15-37) U/L ALT (13-56) U/L Alkaline Phosphatase (45-117) U/L Total Protein (6.4-8.2) g/dL Albumin (3.2-5.0) g/dL Globulin (2.2-4.2) g/dL Albumin/Globulin Ratio (0.9-2.4) RATIO Urine Opiates Screen NEGATIVE (< 300 ng/mL) Urine Methadone Screen NEGATIVE (< 300 ng/mL) Ur Barbiturates Screen NEGATIVE (< 200 ng/mL) Ur Phencyclidine Scrn NEGATIVE (< 25 ng/mL) Ur Amphetamines Screen NEGATIVE (<1000 ng/mL) U Methamphetamin-MDMA POSITIVE H (< 500 ng/mL) U Benzodiazepines Scrn NEGATIVE (< 200 ng/mL) Urine Cocaine Screen NEGATIVE (< 300 ng/mL) U Cannabinoids Screen NEGATIVE (< 50 ng/mL) Ur Drug Screen Comment Syphilis Total Ab Non-reactive Hep Bs Antigen Non-Reactive (Nonreactive) Hepatitis C Antibody Non-Reactive (Nonreactive) HIV 1&2 Antibody Non-Reactive (Nonreactive) Rubella IgG Antibody Reactive (Nonreactive) Blood Type Antibody Screen Screen (NEGATIVE) Baby's Blood Type Baby's TOM (NEGATIVE) 06/17/20 06/17/20 Range/Units 14:52 14:52 WBC 10.2 (4.4-11.0) K/mm3 RBC 4.36 (4.2-5.4) M/mm3 Hgb 12.2 (12.0-15.0) g/dL Hct 37.2 (37-47) % MCV 85.3 (81-99) fL MCH 28.0 (27.0-32.0) pg MCHC 32.8 (32-36) g/dL RDW Std Deviation 48.0 H (35.1-43.9) fl RDW Coeff of Waldo 15.6 H (11.6-14.6) % Plt Count 326 (150-450) K/mm3 MPV 9.8 (6.2-12.0) fl Immature Gran % (Auto) 0.600 (0.0-0.9) % Neut % (Auto) 76.7 H (47-70) % Lymph % (Auto) 16.1 L (19-41) % [place] % (Auto) 4.2 (0-10) % Eos % (Auto) 1.9 (0-5) % Baso % (Auto) 0.5 (0-1) % Absolute Neuts (auto) 7.8 H (2.0-7.7) X10^3/uL Absolute Lymphs (auto) 1.64 (0.83-4.51) X10^3/uL Nucleated RBC % 0 (0-5) % Sodium (136-145) mmol/L Potassium (3.5-5.1) mmol/L Chloride (98-107) mmol/L Carbon Dioxide (21.0-32.0) mmol/L Anion Gap (5-15) BUN (7-18) mg/dL Creatinine (0.55-1.02) mg/dL Estim Creat Clear Calc ml/min Est GFR (MDRD) Af Amer (>60) mL/min Est GFR (MDRD) Non-Af (>60) mL/min BUN/Creatinine Ratio (10-20) RATIO Glucose (74-106) mg/dL Calcium (8.5-10.1) mg/dL Total Bilirubin (0.20-1.00) mg/dL AST (15-37) U/L ALT (13-56) U/L Alkaline Phosphatase (45-117) U/L Total Protein (6.4-8.2) g/dL Albumin (3.2-5.0) g/dL Globulin (2.2-4.2) g/dL Albumin/Globulin Ratio (0.9-2.4) RATIO Urine Opiates Screen (< 300 ng/mL) Urine Methadone Screen (< 300 ng/mL) Ur Barbiturates Screen (< 200 ng/mL) Ur Phencyclidine Scrn (< 25 ng/mL) Ur Amphetamines Screen (<1000 ng/mL) U Methamphetamin-MDMA (< 500 ng/mL) U Benzodiazepines Scrn (< 200 ng/mL) Urine Cocaine Screen (< 300 ng/mL) U Cannabinoids Screen (< 50 ng/mL) Ur Drug Screen Comment Syphilis Total Ab Hep Bs Antigen (Nonreactive) Hepatitis C Antibody (Nonreactive) HIV 1&2 Antibody (Nonreactive) Rubella IgG Antibody (Nonreactive) Blood Type O NEGATIVE Antibody Screen NEGATIVE Screen (NEGATIVE) Baby's Blood Type Baby's TOM (NEGATIVE) - Physical Exam Vitals/I&O's: Vital Signs Temp Pulse Resp BP Pulse Ox 97.8 F 72 14 100/68 100 06/19/20 06:15 06/19/20 07:15 06/19/20 07:15 06/19/20 06:15 06/19/20 07:15 Oxygen Delivery Method Room Air Weight: 284 lb 6.341 oz Body Mass Index (BMI) 47.3 Intake and Output for Last 24 Hours 06/17/20 06/18/20 06/19/20 23:59 23:59 23:59 Intake Total 500 / 500 4917.25 / 4917.25 1550.83 / 1550.83 Output Total 2042 / 2042 355 / 355 Balance 500 / 500 2874.25 / 2874.25 1195.83 / 1195.83 General: Alert, Oriented x3, Cooperative, No apparent distress, Well developed, Well nourished HEENT: Atraumatic, PERRLA, EOMI, Normocephalic Neck: Supple, No JVD Lungs: Normal air movement Cardiovascular: Regular rate Abdomen: Soft, Non Tender, Non-Distended Extremities: No edema, No Calf Tenderness Neurological: Cranial nerves II-XII grossly intact, Neuro grossly intact Psych/Mental Status: Normal Affect, Appropriate Laboratory Results 06/18/20 21:40: Screen NEGATIVE, Baby's Blood Type A POSITIVE, Baby's TOM NEGATIVE 06/19/20 06:33: WBC 11.1 H, RBC 3.58 L, Hgb 10.1 L, Hct 30.9 L, MCV 86.3, MCH 28.2, MCHC 32.7, RDW Std Deviation 49.5 H, RDW Coeff of Waldo 15.9 H, Plt Count 274, MPV 9.7 Current Medications Acetaminophen (Acetaminophen 500 Mg Tablet) 1,000 mg PO Q6 [facility] Last Admin: 06/19/20 06:19 Dose: 1,000 mg Documented by: Bisacodyl (Bisacodyl 10 Mg Suppository) 10 mg RC UD PRN PRN Reason: If no BM Enoxaparin Sodium (Enoxaparin 40 Mg/0.4 Ml Syringe) 40 mg SC DAILY [facility] Last Admin: 06/19/20 06:19 Dose: 40 mg Documented by: Famotidine (Famotidine 20 Mg Tablet) 20 mg PO DAILY [facility] Hydrocortisone (Hydrocortisone 2.5% Crm) 1 applic TOPICAL TID PRN PRN; Protocol PRN Reason: Discomfort Lactated Ringer's () 1,000 mls @ 100 mls/hr IV .Q10H [facility] Last Infusion: 06/19/20 03:30 Dose: 100 mls/hr Documented by: Ketorolac Tromethamine (Ketorolac 30 Mg/Ml Syringe) 30 mg IV Q6H [facility] Stop: 06/19/20 13:31 Last Admin: 06/19/20 07:47 Dose: 30 mg Documented by: Labetalol HCl (Labetalol 100 Mg Tablet) 100 mg PO BID [facility] Last Admin: 06/18/20 22:57 Dose: 100 mg Documented by: Levothyroxine Sodium (Levothyroxine 137 Mcg Tablet) 137 mcg PO DAILY@0600 [facility] Last Admin: 06/19/20 06:19 Dose: 137 mcg Documented by: Levothyroxine Sodium (Levothyroxine 25 Mcg Tablet) 25 mcg PO SuMoWeFr@0600 [facility] Last Admin: 06/19/20 06:20 Dose: 25 mcg Documented by: Methylergonovine Maleate (Methylergonovine 0.2 Mg/Ml Ampul) 0.2 mg IM X1 PRN PRN Reason: Uterine Atony Naproxen (Naproxen 250 Mg Tablet) 500 mg PO Q8H [facility] Ondansetron HCl (Ondansetron 4 Mg/2 Ml Vial) 4 mg IV Q4H PRN PRN PRN Reason: Nausea Oxycodone HCl (Oxycodone 5 Mg Tablet) 5 - 10 mg PO Q4H PRN PRN PRN Reason: Pain Score 4-10 Prochlorperazine Edisylate (Prochlorperazine 10 Mg/2 Ml Vial) 10 mg IV Q6H PRN PRN PRN Reason: NAUSEA Senna/Docusate Sodium (Senna/Docusate Sodium 1 Tablet) 0 tablet PO DAILY [facility] Simethicone (Simethicone 80 Mg Tablet) 80 mg PO PCHS PRN PRN Reason: Indigestion/stomach pain Sodium Chloride (0.9% Saline Lock 10 Ml Syringe) 5 - 15 ml IV UD PRN PRN Reason: SALINE FLUSH Last Admin: 06/18/20 19:17 Dose: 10 ml Documented by: Medical Necessity - Tobacco Use Smoking Status: Former smoker Assessment/Plan All Active Problems (Last Reviewed 06/10/20 @ 14:30 by Peggy Yousif) Encounter for induction of labor (Acute) Positive GBS test (Acute) 36 weeks gestation of (Acute) Anxiety and depression (Acute) Hypothyroid (Acute) AMA (advanced maternal age) primigravida 35+ (Acute) Obesity affecting (Acute) Supervision of high risk , antepartum (Acute) (Acute) Rh negative state in antepartum period (Acute) Miscarried within last 12 months (Resolved) s/p LTCS PPD # 1 1. routine post care 2. breast feeding- support given 3. rh negative 4. rubella immune 5. cHTN with superimposed PreE with severe features - mag d/c'd overnight as BPs low, on labetalol 100mg BID, BPs normotensive
[2020-06-19] MEDS: Senna/Docusate Sodium 1 Tablet PO (12:27)
[2020-06-19] MEDS: Famotidine 20 MG Tablet PO (12:28)
[2020-06-19] MEDS: Naproxen 250 MG Tablet 500 MG PO (19:57)
[2020-06-20] MEDS: Acetaminophen 500 MG Tablet 1000 MG PO ×2 (00:30→06:46)
[2020-06-20 01:35] VITALS: BP 124/70; PULSE 78; RESP 16; TEMP 36.5; O2SAT 96
[2020-06-20] MEDS: Naproxen 250 MG Tablet 500 MG PO (04:11)
[2020-06-20] MEDS: Levothyroxine 25 MCG TABLET PO (06:46)
[2020-06-20] MEDS: Levothyroxine 137 MCG Tablet PO (06:46)
--- NOTE | 2020-06-20 07:47 | PN.OBGYN_ITS ---
Patient Problems: Active and Suspected Problems (Last Reviewed 06/10/20 @ 14:30 by Peggy Yousif) Encounter for induction of labor (Acute) Positive GBS test (Acute) PCN at labor. 36 weeks gestation of (Acute) electronic covid test ordered 05/27/20 (scheduled for 06/17/20 at 1340) Anxiety and depression (Acute) counseling and acupuncture Hypothyroid (Acute) TSH qtrimester. TSH 5.180 at NOB; TSH 01/17- 5.380 - patient to call PCP to adjust dose. AMA (advanced maternal age) primigravida 35+ (Acute) declined genetic testing. Obesity affecting (Acute) glucola 1 hour Supervision of high risk , antepartum (Acute) (SP- NOB labs @[facility]) ANAY 06/25/2020 Girl - Syl Spouse: Jose (Sukhdeep, Lamberto, Angelica, Shelly, Domenica) (Acute) Co Care with Vanessa Snowden declines genetic, carrier and NTD; NL anatomy; needs addition views of spine to finish up anatomy- AFP negative Rh negative state in antepartum period (Acute) Patient is O neg; Spouse Jose is A neg (brought blood type card to New OB visit) Subjective: Patient doing well without complaints. Tolerating PO. Ambulating and voiding without difficulty. Breast feeding well. Denies chest pain, shortness of breath, calf pain/swelling, fevers, chills, lightheadedness. - Physical Exam Vitals/I&O's: Vital Signs Temp Pulse Resp BP Pulse Ox 97.7 F L 78 16 124/70 H 96 06/20/20 01:35 06/20/20 01:35 06/20/20 01:35 06/20/20 01:35 06/20/20 01:35 Oxygen Delivery Method Room Air Weight: 284 lb 6.341 oz Body Mass Index (BMI) 47.3 Intake and Output for Last 24 Hours 06/18/20 06/19/20 06/20/20 23:59 23:59 23:59 Intake Total 4917.25 / 4917.25 1550.83 / 1550.83 Output Total 2042 / 2042 355 / 355 Balance 2874.25 / 2874.25 1195.83 / 1195.83 General: Alert, Oriented x3 Abdomen: Soft, Non-Distended, - - FF below U. Dressing dry and intact. Appropriately tender Current Medications Acetaminophen (Acetaminophen 500 Mg Tablet) 1,000 mg PO Q6 [facility] Last Admin: 06/20/20 06:46 Dose: 1,000 mg Documented by: Bisacodyl (Bisacodyl 10 Mg Suppository) 10 mg RC UD PRN PRN Reason: If no BM Enoxaparin Sodium (Enoxaparin 40 Mg/0.4 Ml Syringe) 40 mg SC DAILY [facility] Last Admin: 06/19/20 06:19 Dose: 40 mg Documented by: Famotidine (Famotidine 20 Mg Tablet) 20 mg PO DAILY [facility] Last Admin: 06/19/20 12:28 Dose: 20 mg Documented by: Hydrocortisone (Hydrocortisone 2.5% Crm) 1 applic TOPICAL TID PRN PRN; Protocol PRN Reason: Discomfort Labetalol HCl (Labetalol 100 Mg Tablet) 100 mg PO BID [facility] Last Admin: 06/19/20 22:06 Dose: Not Given Documented by: Levothyroxine Sodium (Levothyroxine 137 Mcg Tablet) 137 mcg PO DAILY@0600 [facility] Last Admin: 06/20/20 06:46 Dose: 137 mcg Documented by: Levothyroxine Sodium (Levothyroxine 25 Mcg Tablet) 25 mcg PO SuMoWeFr@0600 [facility] Last Admin: 06/20/20 06:46 Dose: 25 mcg Documented by: Methylergonovine Maleate (Methylergonovine 0.2 Mg/Ml Ampul) 0.2 mg IM X1 PRN PRN Reason: Uterine Atony Naproxen (Naproxen 250 Mg Tablet) 500 mg PO Q8H [facility] Last Admin: 06/20/20 04:11 Dose: 500 mg Documented by: Ondansetron HCl (Ondansetron 4 Mg/2 Ml Vial) 4 mg IV Q4H PRN PRN PRN Reason: Nausea Oxycodone HCl (Oxycodone 5 Mg Tablet) 5 - 10 mg PO Q4H PRN PRN PRN Reason: Pain Score 4-10 Prochlorperazine Edisylate (Prochlorperazine 10 Mg/2 Ml Vial) 10 mg IV Q6H PRN PRN PRN Reason: NAUSEA Senna/Docusate Sodium (Senna/Docusate Sodium 1 Tablet) 0 tablet PO DAILY [facility] Last Admin: 06/19/20 12:27 Dose: 1 tablet Documented by: Simethicone (Simethicone 80 Mg Tablet) 80 mg PO PCHS PRN PRN Reason: Indigestion/stomach pain Sodium Chloride (0.9% Saline Lock 10 Ml Syringe) 5 - 15 ml IV UD PRN PRN Reason: SALINE FLUSH Last Admin: 06/18/20 19:17 Dose: 10 ml Documented by: Medical Necessity - Tobacco Use Smoking Status: Former smoker Assessment/Plan All Active Problems (Last Reviewed 06/10/20 @ 14:30 by Peggy Yousif) Encounter for induction of labor (Acute) Positive GBS test (Acute) 36 weeks gestation of (Acute) Anxiety and depression (Acute) Hypothyroid (Acute) AMA (advanced maternal age) primigravida 35+ (Acute) Obesity affecting (Acute) Supervision of high risk , antepartum (Acute) (Acute) Rh negative state in antepartum period (Acute) Miscarried within last 12 months (Resolved) s/p LTCS PPD # 2 1. routine post care 2. breast feeding- support given 3. rh negative, spouse also Rh negative 4. rubella immune 5. BP controlled 6. home today
[2020-06-20 08:30] VITALS: BP 130/82; PULSE 73; RESP 16; TEMP 36.8; O2SAT 99
[2020-06-20] MEDS: Labetalol 100 MG Tablet PO (09:58)
[2020-06-20] MEDS: Enoxaparin 40 MG/0.4 ML Syringe SC (09:58)
[2020-06-20] MEDS: Famotidine 20 MG Tablet PO (09:58)
[2020-06-20] MEDS: Senna/Docusate Sodium 1 Tablet PO (09:58)
[2020-06-20 10:20] VITALS: BP 128/77; PULSE 75
--- NOTE | 2020-06-20 13:32 | CASEMGMT ---
Social Work Assessment Labor and Delivery Unit Date/Time of Referral: 06/18/20, 21:13 Referred by: Nomi Finley MD Date/Time of Assessment: 06/20/20, 12:30pm Reason for Referral: History of depression and anxiety, remote use of THC. History obtained from: FREDERICK Household composition: ALVAREZ MACK, now baby Syl Gee. Also there are 5 step children('s children) ages 15,13,12,11,8 who are with them every other weekend. FOB coparents with these children's mother. FOB and MOB have been together for 1.5 years. This is their first baby together. FREDERICK had a miscarriage in Apr. Patient's parent/guardian status: MOB and ALVAREZ are baby's guardians Medical History: MOB: hypertension, hypothyroid, anxiety and depression. Baby: Born 06/[birth year], 18:21, 3.335kg. Apgars at 1,5,10 minutes were 6,7, and 10 respectively. Baby had asymptomatic hypoglycemia. Route Delivery Supervisor will be with [facility] in [place]. Educational Status: MOB graduated high school and some college. ALVAREZ has his GED. As per MOB, ALVAREZ was [employer], went back and got his GED. Financial Status: No concerns. 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 She is considering returning to work one day per week so she does not lose her skill set. FREDERICK's mother will be available to assist w/childcare if needed. Infant Supplies: They have all needed supplies for baby including car seat, bassinet, crib, clothing, diapers. FREDERICK is planning to breastfeed. Childcare/Caregivers: MOB, ALVAREZ, MOB's mother, ALVAREZ's brother and his Transportation: They have 2 vehicles. Programs/Agencies involved: None Children's Services/Legal Issues: None Behavioral Health: Mental Health History: FREDERICK has both depression and anxiety. She states when she was last year she weaned herself off of antidepressants and started acupuncture. She goes to acupuncture once every other week. She states it really helps and she does not feel anxious or depressed. She had been going to counseling, but has not been attending recently, as she does not feel she needs it. She states she went about a month ago, but felt like it was more of a social call, and didn't really need to go. She states if counseling were needed, she would go back to her counselor, she is with [facility] in [place]. ALVAREZ has no history of mental health diagnoses. Substance abuse: MOB reports no issues with substance abuse for she or FOB. SW asked about the report from RN stating pt had a positive THC screen in the start of her . MOB states she is not certain where this came from, as she is unaware of any positive THC screen. SW explained did look through chart(as pt had her care here), and there were no tox screens completed until MOB here for this admission. MOB had told RN she used marijuana when much younger, not recently. MOB had a positive screen for methamphetamines, she told SW it was due to her blood pressure meds as per the physician(labetalol). This is also documented in physician's notes. There is a pending meconium for the baby. Safety: No concerns for safety at this time. Family/Social Stressors: MOB does not identify any stressors at this time. Support System: FOB, MOB's mother, FOB's brother and sister in law Depression and Anxiety/Shaken Baby/Safe Sleeping/Help Me Grow: SW gave MOB information on all of these topics and reviewed information with her. SW did review warning signs for and encouraged her if she has an increase in symptoms to follow up w/her counselor, physician, global regulatory affairs manager. MOB states understanding. Assessment: MOB appropriate during conversation, good eye contact, answered all questions without hesitation. MOB while SW in speaking w/her, very appropriate and comfortable in handling of the baby. No homegoing concerns at this time, baby home at discharge with MOB and FOB. SW will watch for meconium results, otherwise, no further needs anticipated. PROSPER Weston
[2020-06-20 13:45] VITALS: BP 121/75; PULSE 75; RESP 18; TEMP 36.8; O2SAT 96
--- NOTE | 2020-06-21 13:17 | PCM.DC.SUM ---
Discharge Date and Diagnosis - Problem List Patient Problems: Active and Suspected Problems (Last Reviewed 06/10/20 @ 14:30 by Peggy Yousif) Anxiety and depression (Acute) counseling and acupuncture Hypothyroid (Acute) TSH qtrimester. TSH 5.180 at NOB; TSH 01/17- .380 - patient to call PCP to adjust dose. Rh negative state in antepartum period (Acute) Patient is O neg; Spouse Jose is A neg (brought blood type card to New OB visit) Date of Admission: 06/17/20 - Primary Discharge Diagnosis Acute Problems: Active Problems (Last Reviewed 06/10/20 @ 14:30 by Peggy Yousif) Anxiety and depression (Acute) counseling and acupuncture Hypothyroid (Acute) TSH qtrimester. TSH 5.180 at NOB; TSH 01/17- .380 - patient to call PCP to adjust dose. Rh negative state in antepartum period (Acute) Patient is O neg; Spouse Jose is A neg (brought blood type card to New OB visit) - Secondary Discharge Diagnosis Chronic Problems: Chronic Problems (Last Reviewed 06/10/20 @ 14:30 by Peggy Yousif) Chronic hypertension affecting (Chronic) base line labs. labetalol 100 BID. recommend weekly nst/alexandr after 32 weeks, delivery bt 38-40 weeks. growth US q 4 weeks Hospital Course and Treatment Operations: - - LTCS Summary of Care Provided: The patient is a 35 year old F Patient underwent section with routine recovery, return of normal bowel and bladder function. Ambulating, voiding and tolerating PO. Stable for discharge home POD #3. Patient Problems: Active and Suspected Problems (Last Reviewed 06/10/20 @ 14:30 by Peggy Yousif) Anxiety and depression (Acute) counseling and acupuncture Hypothyroid (Acute) TSH qtrimester. TSH 5.180 at NOB; TSH 01/17- 5.380 - patient to call PCP to adjust dose. Rh negative state in antepartum period (Acute) Patient is O neg; Spouse Jose is A neg (brought blood type card to New OB visit) - Physical Exam Vitals/I&O's: Vital Signs Temp Pulse Resp BP Pulse Ox 98.2 F 75 18 121/75 H 96 06/20/20 13:45 06/20/20 13:45 06/20/20 13:45 06/20/20 13:45 06/20/20 13:45 Oxygen Delivery Method Room Air Weight: 284 lb 6.341 oz Body Mass Index (BMI) 47.3 Intake and Output for Last 24 Hours 06/19/20 06/20/20 06/21/20 23:59 23:59 23:59 Intake Total 1550.83 / 1550.83 Output Total 355 / 355 Balance 1195.83 / 1195.83 Discharge Diet: No Restrictions Discharge Activity: May Not Drive - for 2 weeks or while taking narcotic pain meds., May Shower, May Take a Tub Bath - in 7 days. May resume sexual activity in: 4-6 weeks Additional Activity Instructions:: Nothing in the vagina for 4-6 weeks. You may return to work/school in 6 weeks. Call your doctor if your incision/area has: Continuous Slow Oozing, Sudden Increased Bleeding, Increased Pain/ Swelling, Increased Redness, Foul Smelling Discharge Call your doctor if you observe: Fever of 101 or Higher Suture Line Care: Avoid Pulling/Pushing, Avoid Pinching/Bending Home Medications: Medications to take at Discharge labetalol 100 mg tablet 100 mg PO BID 11/27/19 levothyroxine 137 mcg capsule 137 mcg PO DAILY 11/27/19 multivitamin no.47-iron fum 27 mg-folate no.1 1 mg-dha 300 mg capsule 1 cap PO DAILY 11/27/19 Famotidine 20 mg PO DAILY 06/17/20 Levothyroxine [Synthroid] 25 mcg PO QODAY 06/17/20 Naproxen [Naprosyn] 500 mg PO BID PRN PRN #60 tablet 06/20/20 Oxycodone HCl/Acetaminophen [Percocet 5/325] 1 - 2 tablet PO Q4H PRN PRN 3 Days #15 tablet 06/20/20 Oxycodone [Oxyir] 5 mg PO Q4H PRN PRN #15 tab 06/20/20 Oxycodone [Oxyir] 5 mg PO Q4H PRN PRN 5 Days #15 tab 06/20/20 Following Prescriptions Were Given to Patient: Naproxen [Naprosyn] 500 mg PO BID PRN PRN #60 tablet PRN Reason: Pain Transmission Status: Received by [facility] Oxycodone [Oxyir] 5 mg PO Q4H PRN PRN 5 Days #15 tab PRN Reason: Pain 1-10 Or Fever Transmission Status: Pending to [facility] Oxycodone [Oxyir] 5 mg PO Q4H PRN PRN #15 tab PRN Reason: Pain 1-10 Or Fever Transmission Status: Received by [facility] Oxycodone HCl/Acetaminophen [Percocet 5/325] 1 - 2 tablet PO Q4H PRN PRN 3 Days #15 tablet PRN Reason: Pain Transmission Status: Pending to [facility] Primary Care Physician: Marcos Hussein MD [Primary Care Provider] - Medical Necessity - Tobacco Use Smoking Status: Former smoker Meaningful Use Info Meaningful Use Diagnoses (Choose all that apply): None applicable
[2020-06-22 16:09] LABS: Amphetamine Ur Confirm Negative (Cutoff=500)
== END 2020-06-20 15:00 | disposition home or self-care (01) | DRG 788 ==
PROVIDERS: Admitting Provider Obstetrics & Gynecology; PCP Family Medicine; Visit Provider Obstetrics & Gynecology
DX: O76 Abnormality in fetal heart rate and rhythm complicating labor and delivery (principal); O11.4 Pre-existing hypertension with pre-eclampsia, complicating childbirth; Z37.0 Single live birth; E66.9 Obesity, unspecified; O99.214 Obesity complicating childbirth; E03.9 Hypothyroidism, unspecified; O99.284 Endocrine, nutritional and metabolic diseases complicating childbirth; O99.824 Streptococcus B carrier state complicating childbirth; O26.893 Other specified pregnancy related conditions, third trimester; Z67.91 Unspecified blood type, Rh negative; F32.9 Major depressive disorder, single episode, unspecified; F41.9 Anxiety disorder, unspecified; O99.344 Other mental disorders complicating childbirth; Z3A.39 39 weeks gestation of pregnancy; Z87.891 Personal history of nicotine dependence
CPT/HCPCS: 59025; 59050; 80053; 80307; 85025; 85027; 85461; 86703; 86762; 86780; 86803; 86850; 86900; 86901; 87340; 90384; 99218; 99251; J7120; A4216; G0378; G0463; J2405; J2790